=== PATIENT | male | born 1985 | race Hispanic/Latino ===

== ENCOUNTER 2019-01-02 12:50 | Emergency (ER) | payer MEDICAID, OTHER ==
[2019-01-02 13:16] VITALS: RESP 20; TEMP 97.9
--- NOTE | 2019-01-02 13:50 | C.PDOC ---
History Of Present Illness 33 y/o male pt presents to the ER by EMS because he was found unconscious at home. Pt missed work and his girlfriend came back to check on him when she found him unconscious with pinpoint pupils. Girlfriend called EMS and they gave him narcan up his nose, which woke him up immediately. Pt was last seen normal by his juvenile corrections officer last night. 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 Pt also complains of back pain due to a slip and fall yesterday. Pt has no other complaint. Time Seen by Provider: 01/02/19 13:12 Chief Complaint (Nursing): Substance Abuse History Per: Patient, EMS, Other (girlfriend) History/Exam Limitations: no limitations Onset/Duration Of Symptoms: Hrs Current Symptoms Are (Timing): Still Present Modifying Factor(s): Other (heroin) Past Medical History Reviewed: Historical Data, Nursing Documentation, Vital Signs Vital Signs: Last Vital Signs Temp 97.9 F 01/02/19 13:01 Pulse 114 H 01/02/19 13:01 Resp 20 01/02/19 13:01 BP 119/59 L 01/02/19 13:01 Pulse Ox 95 01/02/19 13:01 - Medical History PMH: Anxiety Family History: States: No Known Family Hx - Social History Hx Alcohol Use: No Hx Substance Use: Yes - Immunization History Hx Tetanus Toxoid Vaccination: No Hx Influenza Vaccination: No Hx Pneumococcal Vaccination: No Review Of Systems Except As Marked, All Systems Reviewed And Found Negative. Constitutional: Positive for: Other (found unconcscious with pinpoint pupils ) Musculoskeletal: Positive for: Back Pain Physical Exam - Physical Exam Appears: Non-toxic, No Acute Distress Skin: Warm, Dry Head: Normacephalic, Tenderness (mild tenderness to occipital ), No Swelling, Abrasion (forehead and right cheek ), No Laceration, Other (contusion on forehead and right cheek ) Eye(s): bilateral: Other (pinpoint pupils ) Neck: Normal ROM, Supple Chest: Symmetrical Cardiovascular: Rhythm Regular Respiratory: Normal Breath Sounds Back: No CVA Tenderness Extremity: Normal ROM (x4) Neurological/Psych: Oriented x3, Normal Speech, Normal Cognition, Normal Motor, Normal Sensation, Other (neuro intact ) ED Course And Treatment O2 Sat by Pulse Oximetry: 95 (RA) Pulse Ox Interpretation: Normal Medical Decision Making Medical Decision Making: Plans: -- Head CT Disposition - Disposition Forms: [facility] (Citizen [place]) - Scribe Statement The provider has reviewed the documentation as recorded by the Scribe Gabrielle Serrano Provider Attestation: All medical record entries made by the Scribe were at my direction and personally dictated by me. I have reviewed the chart and agree that the record accurately reflects my personal performance of the history, physical exam, medical decision making, and the department course for this patient. I have also personally directed, reviewed, and agree with the discharge instructions and disposition.
--- NOTE | 2019-01-02 14:13 | C.PDOC ---
History Of Present Illness 33 y/o male pt presents to the ER by EMS because he was found unconscious at home. Pt missed work and his girlfriend came back to check on him when she found him unconscious with pinpoint pupils. Girlfriend called EMS and they gave him narcan up his nose, which woke him up immediately. 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 Pt uses heroin for years and has multiple detox programs. Pt just got out of a alf house few months ago. Patient uses heroin on weekends injecting to right arm antecubital. Last use heroin was last night, 3 bags and this morning, 5 bags. Pt also complains of back pain due to a slip and fall yesterday. . Pt has no other complaint. Time Seen by Provider: 01/02/19 13:12 Chief Complaint (Nursing): Substance Abuse History Per: Patient, EMS, Other (girlfriend) History/Exam Limitations: no limitations Onset/Duration Of Symptoms: Hrs Current Symptoms Are (Timing): Still Present Modifying Factor(s): Other (heroin) Past Medical History Reviewed: Historical Data, Nursing Documentation, Vital Signs Vital Signs: Last Vital Signs Temp 97.9 F 01/02/19 13:01 Pulse 114 H 01/02/19 13:01 Resp 20 01/02/19 13:01 BP 119/59 L 01/02/19 13:01 Pulse Ox 95 01/02/19 13:01 - Medical History PMH: Anxiety Family History: States: No Known Family Hx - Social History Hx Alcohol Use: No Hx Substance Use: Yes - Immunization History Hx Tetanus Toxoid Vaccination: No Hx Influenza Vaccination: No Hx Pneumococcal Vaccination: No Review Of Systems Except As Marked, All Systems Reviewed And Found Negative. Constitutional: Positive for: Other (pinpoint pupils; s/p unconscious ) Musculoskeletal: Positive for: Back Pain Physical Exam - Physical Exam Appears: Well, Non-toxic, No Acute Distress Skin: Warm, Dry, Other (Track willson on right bilateral antecubital fossa) Head: Normacephalic, Tenderness (mild tenderness to occipital ), Swelling (forehead and right cheek ), Abrasion (forehead and right cheek ), No Laceration, Other (contusion to forehead and right cheek ) Eye(s): bilateral: Other (pinpoint pupils ) Nose: Normal Oral Mucosa: Moist Throat: Normal Chest: Symmetrical Cardiovascular: Rhythm Regular Respiratory: Normal Breath Sounds, No Rales, No Rhonchi, No Wheezing Gastrointestinal/Abdominal: Soft, No Tenderness Back: No CVA Tenderness Extremity: Normal ROM (x4), Other (IV on right arm ) Neurological/Psych: Oriented x3, Normal Speech, Normal Cognition, Normal Motor, Normal Sensation ED Course And Treatment O2 Sat by Pulse Oximetry: 95 (RA) Pulse Ox Interpretation: Normal - Other Rad lumbar spine X-Ray: Read By Radiologist Interpretation: IMPRESSION: No acute fracture, spondylolysis or spondylolisthesis. Straightening of the lumbar spine may be related to muscle spasm. - CT Scan/US head CT Other Rad Studies (CT/US): Interpreted By Me (neg) Medical Decision Making Medical Decision Making: Plans: -- Ls spine -- CT head chronic back pain heroine abuse accidental OD, R arm recent use of "af few bags a day" no heroine detox beds available today opt f/u. Disposition Doctor Will See Patient In The: Office Counseled Patient/Family Regarding: Studies Performed, Diagnosis - Disposition Referrals: Alcoholics Anonymous [Outside] [employer] [facility] [Outside] [facility] [Outside] [facility] [Outside] [facility] [Outside] [facility] [Outside] Disposition: HOME/ ROUTINE Disposition Time: 14:14 Condition: GOOD Additional Instructions: seek pre-screen for heroine detox program- no detox beds available today @ Carry Narcan in your pocket at all times- advise anyone you are with that they can take it out of your pocket and spray it up your nose to save your life in case of accidental heroine/narcotics overdose Encourage Friends/family to carry Narcan on their person at all times as well Seek outpatient referral for chronic back pain issues. Motrin 400-600 mg every 6 hours as needed. ice packs and no heat therapy to lower back area 1/2 hour per hour. head CT neg today Prescriptions: Naloxone HCl [Narcan] 4 mg NS ONCE PRN #1 spray PRN Reason: narcotics overdose Instructions: Drug Abuse and Drug Addiction (DC), Narcotic Overdose (DC), Taking Narcotics Safely, How to Give Naloxone Forms: [facility] ([place]) - Clinical Impression Clinical Impression: Accidental overdose of heroin - Scribe Statement The provider has reviewed the documentation as recorded by the Lucyibe Anthony Do Provider Attestation: All medical record entries made by the Lucyibe were at my direction and personally dictated by me. I have reviewed the chart and agree that the record accurately reflects my personal performance of the history, physical exam, medical decision making, and the department course for this patient. I have also personally directed, reviewed, and agree with the discharge instructions and disposition.
--- NOTE | 2019-01-02 14:14 | CT ---
Date of service: 01/02/2019 PROCEDURE: CT HEAD WITHOUT CONTRAST. HISTORY: OD: occ yesterday, frontal today COMPARISON: None available. TECHNIQUE: Axial computed tomography images were obtained through the head/brain without intravenous contrast. Radiation dose: Total exam DLP = 1128.2 mGy-cm. This CT exam was performed using one or more of the following dose reduction techniques: Automated exposure control, adjustment of the mA and/or kV according to patient size, and/or use of iterative reconstruction technique. FINDINGS: Streak artifact limits evaluation of the skull base. HEMORRHAGE: No intracranial hemorrhage. BRAIN: No mass effect or edema. Serna-white matter differentiation appears intact. VENTRICLES: No hydrocephalus. CALVARIUM: Unremarkable. PARANASAL SINUSES: Mild mucosal thickening of the ethmoid air cells. MASTOID AIR CELLS: Unremarkable as visualized. No inflammatory changes. OTHER FINDINGS: None. IMPRESSION: Streak artifact limits evaluation of the skull base. No acute intracranial pathology identified. Please note that MRI with diffusion imaging is more sensitive in the detection of acute ischemic event.
[2019-01-02 14:29] VITALS: BP 102/60; PULSE 101
[2019-01-02 15:01] VITALS: O2SAT 95
--- NOTE | 2019-01-02 15:45 | RAD ---
Date of service: 01/02/2019 PROCEDURE: Radiographs of the Lumbar Spine. HISTORY: fall to buttock yesterday COMPARISON: No prior. FINDINGS: BONES: There is normal alignment of the lumbar vertebral bodies. There is loss of normal lumbar lordosis. There is no acute fracture, spondylolysis or spondylolisthesis. Bone mineralization is normal. DISC SPACES: The disc heights are maintained. OTHER FINDINGS: No pathologic soft tissue calcifications. Both sacroiliac joints are normal. IMPRESSION: No acute fracture, spondylolysis or spondylolisthesis. Straightening of the lumbar spine may be related to muscle spasm.
== END 2019-01-02 16:13 | disposition home or self-care (01) ==
LOC: C.ER 12:50
DX: T40.1X1A Poisoning by heroin, accidental (unintentional), initial encounter (principal); Y92.9 Unspecified place or not applicable; F41.9 Anxiety disorder, unspecified